=== PATIENT | male | born 1970 | race Caucasian/White ===

== ENCOUNTER 2016-10-05 10:14 | Emergency (ER) | payer SELFPAY ==
[2016-10-05] MEDS ORDERED: 0.9 % SODIUM CHLORIDE 500 ML IV ONE (10:26)
[2016-10-05] MEDS ORDERED: INSULIN REGULAR, HUMAN 100 UNIT/ML 3ML VIAL SQ ONE (10:28)
--- NOTE | 2016-10-05 10:45 | ED Physician Documentation ---
General Adult - HISTORIAN Historian: patient - HPI Chief Complaint: General Adult Onset: hours Timing: still present Severity: mild Further Comments: yes (Patient is known diabetic, ?type 2. Has been daibetic for 10 years. Is currently on insulin therapy. Does sliding scale insulin three times a day. Patient states that he last checked his BS last evening and was 140. Patient did not take any of his insulin this AM. Did not eat breakfast. Was feeling funny at work and had his BS checked and it was reported to be i nthe 500s. Patient was subsequently brought to the ED. Last A1c is reported to be 10. Patient states that he is not feeling bad at this time.) - ROS CONST: no problems. denies: fever, chills - PAST HX Past History: COPD, other (Bipolar disorder, OA, ) Surgeries/Procedures: other (left forearm surgery) Allergies/Adverse Reactions: Allergies Allergy/AdvReac Type Severity Reaction Status Date / Time propoxyphene napsylate AdvReac Headache Verified 10/05/16 11:12 [From ConcepcionJohn] Home Medications: Ambulatory Orders Medication Instructions Recorded Cetirizine HCl [Zyrtec] 10 mg PO DAILY 10/05/16 Gabapentin [Neurontin] 300 mg PO TID 10/05/16 Metoprolol Tartrate [Lopressor] 25 mg PO BID 10/05/16 Nortriptyline HCl [Pamelor] 150 mg PO HS 10/05/16 Venlafaxine HCl [Effexor Xr] 150 mg PO DAILY 10/05/16 - SOCIAL HX Smoking History: greater than 1 pack/day Drug Use: none, marijuana - FAMILY HX Family History: Yes (diabetes) - REVIEWED ASSESSMENTS Nursing Assessment Reviewed: Yes Vitals Reviewed: Yes Progress - Progress Progress: 11:38 BS improved to 363 General Adult Physical Exam - PHYSICAL EXAM GENERAL APPEARANCE: no distress EENT: eye inspection normal, ENT inspection normal NECK: normal inspection, supple. No: lymphadenopathy, stiff neck RESPIRATORY: no resp distress, chest non-tender. No: wheezes, rales, rhonchi CVS: reg rate & rhythm, heart sounds normal, equal pulses, no murmur, no gallop ABDOMEN: soft, no organomegaly, normal bowel sounds, no abdominal bruit, no distension BACK: normal inspection, no CVA tenderness SKIN: warm/dry, normal color NEURO: oriented X3, CN's nml as tested, motor nml, sensation nml, mood/affect nml, cognition normal Discharge Clincal Impression: Hyperglycemia Referrals: Primary DoctorKaryna [Primary Care Provider] - 10/11/16 Additional Instructions: Continue with your present insulin dose. Check you blood sugars as previously directed, and take your insulin accordingly. Home Medications: Ambulatory Orders Cetirizine HCl [Zyrtec] 10 mg PO DAILY 10/05/16 Gabapentin [Neurontin] 300 mg PO TID 10/05/16 Metoprolol Tartrate [Lopressor] 25 mg PO BID 10/05/16 Nortriptyline HCl [Pamelor] 150 mg PO HS 10/05/16 Venlafaxine HCl [Effexor Xr] 150 mg PO DAILY 10/05/16 Condition: Stable Disposition: 01 HOME, SELF-CARE Decision to Admit: NO Date of Decison to Admit: 10/05/16 Decision Time: 12:28
[2016-10-05 10:52] LABS: BASOPHILS % 0.3 (0.0-1.5); EOSINOPHILS % 2.9 % (0.0-6.8); MEAN CORPUSCULAR HEMOGLOBIN 33.5 pg (28.0-34.0); MEAN CORPUSCULAR VOLUME 101.9 fl (80.0-100.0); MONOCYTES % 4.1 % (0.0-11.0); NEUTROPHILS # 5.9 # k/uL (1.4-7.7)
[2016-10-05 11:10] LABS: eGFR (African) > 60; eGFR (Non-African) > 60
[2016-10-05 12:24] LABS: APPEARANCE,URINE CLOUDY (CLEAR); COLOR,URINE AMBER (YELLOW); OCCULT BLOOD,URINE 1+ (NEGATIVE)
[2016-10-05 12:55] VITALS: BP 122/82
== END 2016-10-05 12:24 | disposition home or self-care (01) ==
LOC: ED 10:14
DX: E11.65 Type 2 diabetes mellitus with hyperglycemia (principal)
CPT/HCPCS: 80053; 81002; 85025; 87086; J1815; J7060; 96372; 99283

== ENCOUNTER 2016-11-18 20:20 | Inpatient (IN) | payer OTHER ==
[2016-11-18] MEDS ORDERED: 0.9 % SODIUM CHLORIDE 1,000 ML IV ONE ×2 (20:34→22:41)
[2016-11-18 22:30] LABS: eGFR (African) > 60; eGFR (Non-African) > 60
--- NOTE | 2016-11-18 22:34 | ED Physician Documentation ---
General Adult - HISTORIAN Historian: patient - HPI Stated Complaint: Hypotension Chief Complaint: General Adult Onset: hours Timing: still present Severity: moderate Further Comments: yes (Pt is a 46 yo male [facility] resident, trying to rehab for ETOH abuse who comes to ER for hypotension. Pt has been at [facility] for 2 days. He has not been eating or drinking very well. Pt has hx of drinking a 12 pack/day x 30 yrs.) - ROS CONST: weakness, other (malais) EYES/ENT: none CVS/RESP: cough GI/: none MS/SKIN/LYMPH: none - PAST HX Past History: hypertension, other (IDDM, ETOH abuse, Depression) Allergies/Adverse Reactions: Allergies Allergy/AdvReac Type Severity Reaction Status Date / Time propoxyphene napsylate AdvReac Headache Verified 10/05/16 11:12 [From ConcepcionJohn] Home Medications: Ambulatory Orders Medication Instructions Recorded Cetirizine HCl [Zyrtec] 10 mg PO DAILY 10/05/16 Gabapentin [Neurontin] 100 mg PO TID 10/05/16 Metoprolol Tartrate [Lopressor] 50 mg PO BID 10/05/16 Nortriptyline HCl [Pamelor] 50 mg PO HS 10/05/16 Venlafaxine HCl [Effexor Xr] 150 mg PO DAILY 10/05/16 Carbamazepine [Tegretol] 200 mg PO TID 11/18/16 Insulin NPH Human Isophane 20 units SQ HS 11/18/16 [Humulin N] Insulin NPH Human Isophane 40 units SQ QDAY 11/18/16 [Humulin N] Insulin Regular, Human [Humulin R] See Protocol SQ DIRECTED 11/18/16 Nortriptyline HCl 50 mg PO QDAY 11/18/16 - SOCIAL HX Smoking History: cigarettes Alcohol Use: heavy Drug Use: none - FAMILY HX Family History: No - VITAL SIGNS Vital Signs: Vital Signs Temp Pulse Resp BP Pulse Ox 82 16 91/61 94 11/18/16 20:39 11/18/16 20:39 11/18/16 20:39 11/18/16 20:39 - REVIEWED ASSESSMENTS Nursing Assessment Reviewed: Yes Vitals Reviewed: Yes Progress - Progress Progress: CXR: 1. Right upper lobe nodule versus nodular infiltrate. 2. Hazy and medial right basilar infiltrate. 3. Healed or healing right rib fractures. 4. Recommend chest CT. (See below.) CT Chest: 1. Extensive right lung pneumonia and right greater than left bronchitis. 2. Chronic calcific pancreatitis. 3. Right hilar lymphadenopathy. 4. Left renal stone. NS 1 L IVF Banana bag 1 L IVF Blood cx - pending Levaquin 500 mg IV in ER Pneumonia Admit to Dr. Freitas. ED Results Lab/Radiology - Lab Results Lab Results: Lab Results 11/18/16 22:05 Sodium 138 mmol/L mmol/L (136-145) Potassium 3.9 mmol/L mmol/L (3.5-5.0) Chloride 105 mmol/L mmol/L (98-110) Carbon Dioxide 23 mmol/L mmol/L (20-32) BUN 14 mg/dL mg/dL (10-26) Creatinine 0.6 mg/dL mg/dL (0.4-1.5) Estimated Creat Clear 146 Est GFR ( Amer) > 60 (60 - ) Est GFR (Non-Af Amer) > 60 (60 - ) Glucose 89 mg/dL mg/dL (70-99) Calcium 8.8 mg/dL mg/dL (8.5-10.5) Total Bilirubin 0.3 mg/dL mg/dL (0.2-1.2) AST 18 U/L U/L (0-41) ALT 14 U/L U/L (0-45) Alkaline Phosphatase 115 U/L U/L (46-116) Total Protein 5.4 g/dL L g/dL (6.0-8.5) Albumin 3.4 g/dL g/dL (3.0-5.5) - Orders Orders: ED Orders Category Date Time Status Place IV Lock 1T Care 11/18/16 20:34 Active CBC/PLATELET/DIFF Routine Lab 11/18/16 22:05 Received CMP Routine Lab 11/18/16 22:05 Completed ETHANOL MEDICAL USE ONLY Stat Lab 11/18/16 20:05 Received UDS [DRUG SCREEN URINE MEDICAL ONLY] Routine Lab 11/18/16 Ordered URINALYSIS Routine Lab 11/18/16 Ordered 0.9 % Sodium Chloride [Normal Saline] 1,000 ml Med 11/18/16 20:34 Discontinued IV Q1H General Adult Physical Exam - PHYSICAL EXAM GENERAL APPEARANCE: mild distress EENT: pharynx normal NECK: normal inspection, supple RESPIRATORY: no resp distress, rales (R) CVS: reg rate & rhythm, heart sounds normal ABDOMEN: soft, no organomegaly, normal bowel sounds BACK: normal inspection, no CVA tenderness SKIN: warm/dry EXTREMITIES: non-tender, normal range of motion, no evidence of injury NEURO: oriented X3, motor nml, sensation nml Discharge Clincal Impression: In Alcohol detox program Pneumonia Qualifiers: Pneumonia type: due to unspecified organism Laterality: right Lung location: unspecified part of lung Qualified Code(s): J18.9 - Pneumonia, unspecified organism Hypotension Qualifiers: Hypotension type: unspecified hypotension type Qualified Code(s): I95.9 - Hypotension, unspecified Referrals: Primary Doctor,No [Primary Care Provider] - 2 Days Home Medications: Ambulatory Orders Cetirizine HCl [Zyrtec] 10 mg PO DAILY 10/05/16 Gabapentin [Neurontin] 100 mg PO TID 10/05/16 Metoprolol Tartrate [Lopressor] 50 mg PO BID 10/05/16 Nortriptyline HCl [Pamelor] 50 mg PO HS 10/05/16 Venlafaxine HCl [Effexor Xr] 150 mg PO DAILY 10/05/16 Carbamazepine [Tegretol] 200 mg PO TID 11/18/16 Insulin NPH Human Isophane [Humulin N] 20 units SQ HS 11/18/16 Insulin NPH Human Isophane [Humulin N] 40 units SQ QDAY 11/18/16 Insulin Regular, Human [Humulin R] See Protocol SQ DIRECTED 11/18/16 Nortriptyline HCl 50 mg PO QDAY 11/18/16 Condition: Fair Disposition: ADMITTED INPATIENT Decision to Admit: [id number] Decision Time: 01:54
[2016-11-18 22:41] LABS: BASOPHILS % 0.8 (0.0-1.5); MEAN CORPUSCULAR HEMOGLOBIN 34.3 pg (28.0-34.0); MEAN CORPUSCULAR VOLUME 106.3 fl (80.0-100.0); MONOCYTES % 4.1 % (0.0-11.0); NEUTROPHILS # 11.5 # k/uL (1.4-7.7)
[2016-11-18] MEDS ORDERED: THIAMINE HCL 100 MG/ML 2ML VIAL ONE (22:41)
[2016-11-18] MEDS: THIAMINE HCL 100 MG, MVI, ADULT NO.1 WITH VIT K 10 ML, FOLIC ACID 5 MG in 0.9 % SODIUM ... IV ONE ×4 (22:47)
--- NOTE | 2016-11-18 23:27 | Diagnostic Imaging Report ---
ARLEEN PETTIT [facility] [address] [facility] [address] [address] Report Submission Date: Nov 18, 2016 11:25:15 PM CDT Patient Study Name: LUIS M BELL Date: Nov 18, 2016 11:08:25 PM CDT Modality Type: CR Gender: M Description: CHEST : 72 Institution: [facility] Physician: ARLEEN PETTIT Chest single view History: Leukocytosis Findings: An indeterminate 1.8 cm right upper lobe nodule or nodular infiltrate is observed. Multiple healed or healing right rib fractures are present. Hazy infiltrate or atelectasis is present at the medial right lung base. Left lung is clear. Heart size is normal. Impression: 1. Right upper lobe nodule versus nodular infiltrate. 2. Hazy and medial right basilar infiltrate. 3. Healed or healing right rib fractures. 4. Recommend chest CT. Electronically signed on Nov 18, 2016 11:25:15 PM CDT by: Mars TOM
[2016-11-19] MEDS: THIAMINE HCL 100 MG, MVI, ADULT NO.1 WITH VIT K 10 ML, FOLIC ACID 5 MG in 0.9 % SODIUM ... IV ONE ×4
--- NOTE | 2016-11-19 00:49 | Diagnostic Imaging Report ---
ARLEEN PETTIT [facility] [address] [facility] [address] [place], [place]. [address] Report Submission Date: Nov 19, 2016 12:43:19 AM CDT Patient Study Name: LUIS M BELL Date: Nov 19, 2016 12:13:17 AM CDT Modality Type: CT\SR Gender: M Description: CT CHEST W/O CONTRAST : 71 Institution: [facility] Physician: ARLEEN PETTIT Computed tomography of the chest without contrast History: Right upper lobe nodule versus nodular infiltrate on chest radiograph. Leukocytosis and lethargy Findings: Transverse chest sections are obtained without contrast revealing air space infiltrates in the right lower lobe posterior right upper lobe, and to a lesser extent the right middle lobe. Infiltrate is somewhat nodular in the right upper lobe accounting for the radiographic abnormality. Bronchial wall thickening is observed in the right lung and left lower lobe. Trace right pleural effusion is present. Right hilar lymphadenopathy is noted. Calcified right hilar and subcarinal granulomas are present. Coronary artery calcifications are observed. Chronic calcific pancreatitis and pancreatic atrophy are observed. A small left renal stone is noted. Impression: 1. 1. Extensive right lung pneumonia and right greater than left bronchitis. 2. Chronic calcific pancreatitis. 3. Right hilar lymphadenopathy. 4. Left renal stone. Electronically signed on Nov 19, 2016 12:43:19 AM CDT by: Mars TOM
[2016-11-19] MEDS ORDERED: LEVOFLOXACIN 500MG/D5W 100ML 500 MG in PREMIX BAG 1 BAG IV ONE (00:56)
[2016-11-19] MEDS ORDERED: LEVOFLOXACIN 500MG/D5W 100ML 100 ML IV ONE ×2 (01:14→05:54)
[2016-11-19] MEDS ORDERED: INSULIN REGULAR, HUMAN 100 UNIT/ML 3ML VIAL SQ SCH ×2 (02:00→09:39)
[2016-11-19] MEDS ORDERED: 0.9 % SODIUM CHLORIDE 250 ML IV ONE (02:30)
[2016-11-19] MEDS ORDERED: AZITHROMYCIN 500 MG VIAL IV ONE (02:30)
[2016-11-19] MEDS: SALINE FLUSH 10 ML DISP.SYRIN IV SCH ×3 (02:50→19:45)
[2016-11-19] MEDS: AZITHROMYCIN 500 MG in 0.9 % SODIUM CHLORIDE 250 ML IV SCH (02:50)
[2016-11-19 03:33] VITALS: BMI 19.3
[2016-11-19] MEDS ORDERED: GABAPENTIN 100 MG CAPSULE ONE (05:54)
[2016-11-19] MEDS: IPRATROPIUM/ALBUTEROL SULFATE 3 ML AMPUL.NEB NEB SCH ×5 (06:10→20:38)
[2016-11-19 07:17] LABS: BASOPHILS % 0.7 (0.0-1.5); EOSINOPHILS % 0.7 % (0.0-6.8); MEAN CORPUSCULAR HEMOGLOBIN 34.3 pg (28.0-34.0); MEAN CORPUSCULAR VOLUME 109.3 fl (80.0-100.0); MONOCYTES % 4.2 % (0.0-11.0); NEUTROPHILS # 11.2 # k/uL (1.4-7.7)
[2016-11-19 07:22] LABS: eGFR (African) > 60; eGFR (Non-African) > 60
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
[2016-11-19] MEDS ORDERED: GABAPENTIN 300 MG CAPSULE PO SCH (09:00)
[2016-11-19] MEDS ORDERED: INSULIN NPH HUMAN ISOPHANE SQ SCH ×3 (09:00→21:00)
[2016-11-19] MEDS: VENLAFAXINE HCL 37.5 MG CAP.ER.24H PO SCH (09:28)
[2016-11-19] MEDS: THIAMINE HCL 100 MG TABLET PO SCH (09:29)
[2016-11-19] MEDS: CARBAMAZEPINE 200 MG TABLET PO SCH ×2 (09:30→19:45)
[2016-11-19] MEDS: NORTRIPTYLINE HCL 25 MG CAPSULE PO SCH (09:31)
[2016-11-19] MEDS: LEVOFLOXACIN 500MG/D5W 100ML 500 MG in PREMIX BAG 1 BAG IV SCH (09:36)
[2016-11-19] MEDS: GABAPENTIN 100 MG CAPSULE PO SCH ×3 (10:20→18:04)
[2016-11-19] MEDS: INSULIN REGULAR, HUMAN 100 UNIT/ML 3ML VIAL SQ SCH ×2 (12:37→16:56)
[2016-11-19] MEDS: NICOTINE 14mg PATCH.TD24 TD SCH (12:41)
[2016-11-19] MEDS ORDERED: INSULIN NPH HUMAN ISOPHANE SQ ONE (16:59)
[2016-11-19] MEDS ORDERED: INSULIN REGULAR, HUMAN 100 UNIT/ML 3ML VIAL SQ ONE (20:07)
[2016-11-19] MEDS ORDERED: NORTRIPTYLINE HCL 25 MG CAPSULE PO SCH (21:00)
[2016-11-20] MEDS: AZITHROMYCIN 500 MG in 0.9 % SODIUM CHLORIDE 250 ML IV SCH (02:00)
[2016-11-20] MEDS: IPRATROPIUM/ALBUTEROL SULFATE 3 ML AMPUL.NEB NEB SCH ×3 (02:31→09:45)
[2016-11-20 06:47] LABS: BASOPHILS % 0.5 (0.0-1.5); EOSINOPHILS % 3.1 % (0.0-6.8); MEAN CORPUSCULAR HEMOGLOBIN 34.8 pg (28.0-34.0); MEAN CORPUSCULAR VOLUME 105.1 fl (80.0-100.0); MONOCYTES % 3.6 % (0.0-11.0); NEUTROPHILS # 7.3 # k/uL (1.4-7.7)
[2016-11-20] MEDS: INSULIN REGULAR, HUMAN 100 UNIT/ML 3ML VIAL SQ SCH (07:27)
[2016-11-20 08:39] VITALS: BP 104/68
--- NOTE | 2016-11-20 08:49 | Discharge Summary ---
Discharge Summary - Discharge Sumary History of Present Illness: Pateint is a 46yo white mle who was admitted to [facility] for EtOH dependency and abuse. Allison's BP started to dropped and patient was brought to the ED for evaluation. Was found to have a RUL pneumonia and was admitted for further care. Has been feeling weak for about a month. Has been worse. Has been having some lightheadedness and dizziness. Has had a near syncopal episode. No fever noted but has been having some chills recently. Has had a productive cough of some green/yellow phlegm. No blood noted. Having some chest wall pain, possibly related to coughing. SOB for about 6 mouths. Has a history of COPD with wheezing. History of chronic bronchitis. Has been drinking 12 pack per day. Last intake was 5 days ago. Has been in treatment > 10 yrs ago. Has had DTs when he has stopped before. Has ahd a seizure when withdrawing in the past. No medical problems related to alcohol. Condition at Discharge: Stable Home Medications: Ambulatory Orders Medication Instructions Recorded Cetirizine HCl [Zyrtec] 10 mg PO DAILY 10/05/16 Gabapentin [Neurontin] 100 mg PO TID 10/05/16 Metoprolol Tartrate [Lopressor] 50 mg PO BID 10/05/16 Nortriptyline HCl [Pamelor] 50 mg PO HS 10/05/16 Venlafaxine HCl [Effexor Xr] 150 mg PO DAILY 10/05/16 Insulin NPH Human Isophane 20 units SQ HS 11/18/16 [Humulin N] Insulin NPH Human Isophane 40 units SQ QDAY 11/18/16 [Humulin N] Insulin Regular, Human [Humulin R] See Protocol SQ DIRECTED 11/18/16 Nortriptyline HCl 50 mg PO QDAY 11/18/16 Carbamazepine [Tegretol] 200 mg PO TID #0 11/20/16 Ipratropium/Albuterol Sulfate 3 ml NEB Q4 11/20/16 [Duoneb] Levofloxacin [Levaquin] 500 mg PO D #7 tablet 11/20/16 Thiamine HCl [Vitamin B-1] 100 mg PO DAILY 11/20/16 Consultations this Visit: None Procedures this Visit: None Allergies/Adverse Reactions: Allergies Allergy/AdvReac Type Severity Reaction Status Date / Time propoxyphene napsylate AdvReac Headache Verified 10/05/16 11:12 [From [facility]] Discharge Summary: Patient was noted to have extensive right side of the volume. Patient was started on Levaquin 5 mg IV and azithromycin 500 mg IV. Patient is also started on high flow neb treatments. Patient's respiratory status improved greatly within 24 hours after admission. Patient was able to maintain an adequate SAO2. At the time of discharge it was felt that the patient could be managed on an outpatient basis. Patient blood sugars monitor closely and patient was given IV insulin as needed. Patient did have some mild hyperglycemia with a blood sugar of 68 at one time. Patient WBC count did drop from 14,700 to 9900. At the time of dismissal was felt that the patient was stable enough that he could be managed on an outpatient basis. - Final Diagnosis (1) Pneumonia Right or Left: Right (2) Diabetes type 2, uncontrolled Problems: discharged on home meds (3) COPD (chronic obstructive pulmonary disease) Problems: stable with pneumonia
[2016-11-20] MEDS ORDERED: INSULIN NPH HUMAN ISOPHANE SQ SCH (09:00)
[2016-11-20] MEDS: NICOTINE 14mg PATCH.TD24 TD SCH (09:46)
[2016-11-20] MEDS: SALINE FLUSH 10 ML DISP.SYRIN IV SCH (09:50)
[2016-11-20] MEDS: LEVOFLOXACIN 500MG/D5W 100ML 500 MG in PREMIX BAG 1 BAG IV SCH (09:50)
[2016-11-20] MEDS: THIAMINE HCL 100 MG TABLET PO SCH (09:52)
[2016-11-20] MEDS: VENLAFAXINE HCL 37.5 MG CAP.ER.24H PO SCH (09:52)
[2016-11-20] MEDS: NORTRIPTYLINE HCL 25 MG CAPSULE PO SCH (09:52)
[2016-11-20] MEDS: GABAPENTIN 100 MG CAPSULE PO SCH (09:53)
[2016-11-20] MEDS: CARBAMAZEPINE 200 MG TABLET PO SCH (09:53)
== END 2016-11-20 10:23 | disposition home or self-care (01) | DRG 195 ==
LOC: ED 20:20 → SOUTH 11-19 01:53
PROVIDERS: ADMIT Family Medicine; ATTEND Family Medicine
DX: J18.9 Pneumonia, unspecified organism (principal); E11.9 Type 2 diabetes mellitus without complications; J44.9 Chronic obstructive pulmonary disease, unspecified
CPT/HCPCS: 36415; 71010; 71250; 80053; 80320; 85025; 87040; A9270; J0456; J1815; J1956; J3411; J3490; J7030; J7050; 99223; 99238; 99284; G0480; S1016